=== PATIENT | male | born 1955 | race Asian ===

== ENCOUNTER 2022-12-28 16:16 | Emergency (ER) | payer OTHER ==
[~2022-12-28] VITALS: Ht 185.4 cm; Wt 114.3 kg
[2022-12-28 16:16] VITALS: BP 109/59; TEMP 98
[~2022-12-28 16:16] MED LIST: AMLODIPINE BESYLATE PO; CHOL100034 PO; CLON0.1T16 PO; CLONIDINE HYDR0.2 MG PO; CLOTCRE EX; CODEINE/APAP1 TA1 PO; CYAN10009 IM; DONE5TAB PO; DONEPEZIL HYDRO10 M1 PO; DOXYCYCL HYC100 MG PO; DULO30CA PO; FERROUS SULF325 MG PO; FOLI1TAB26 PO; GABA300C2 PO; HYDR-3182 PO; HYDROCHLOROT12.5 M1 PO; IRON325 MG PO; MECLIZINE 2525 MG PO; MELOXICAM7.5 MG PO; MEMA10TA2 PO; METO-837 PO; METOPROLOL25 M1 PO; MOBIC15 MG PO; MONTELUKAST SOD10 MG PO; NAMENDA10 MG PO
[2022-12-28 17:08] LABS: PLATELET COUNT 216 K/uL (142-355)
[2022-12-28 17:17] LABS: POTASSIUM 4.2 mmol/L (3.6-5.2)
[2022-12-28] MEDS ORDERED: CALCIUM500 MG PO (18:16)
[2022-12-28] MEDS ORDERED: DOCU100C10 PO (18:17)
[2022-12-28] MEDS ORDERED: CYAN10009 IM (18:19)
[2022-12-28] MEDS ORDERED: DULOXETINE HCL20 MG PO (18:21)
[2022-12-28] MEDS ORDERED: DONE5TAB PO (18:22)
[2022-12-28] MEDS ORDERED: FERROCITE PO (18:23)
[2022-12-28] MEDS ORDERED: FOLI1TAB26 PO (18:24)
[2022-12-28] MEDS ORDERED: MOBIC7.5 M1 PO (18:25)
[2022-12-28] MEDS ORDERED: MEMA10TA2 PO (18:26)
[2022-12-28] MEDS ORDERED: AMLODIPINE BESYLATE PO (18:28)
[2022-12-28] MEDS ORDERED: [UNRECOGNIZED DRUG - CODE] PO (18:30)
[2022-12-28] MEDS ORDERED: CLONIDINE HYDR0.2 MG PO (18:34)
[2022-12-28] MEDS ORDERED: METO-837 PO (18:36)
[2022-12-28] MEDS ORDERED: PANTOPRAZOLE 40MG TA PO (18:37)
[2022-12-28] MEDS ORDERED: GABA300C2 PO (18:38)
[2022-12-28] MEDS ORDERED: ONDA4TAB3 PO (18:40)
[2023-01-11] MEDS ORDERED: DOCU100C10 PO (11:01)
[2023-01-11] MEDS ORDERED: CLON0.1T16 PO (11:01)
[2023-01-11] MEDS ORDERED: DULO30CA PO (11:01)
[2023-01-11] MEDS ORDERED: NORVASC 5MG TAB PO (11:01)
[2023-01-11] MEDS ORDERED: FOLI1TAB26 PO (11:02)
[2023-01-11] MEDS ORDERED: MELOXICAM7.5 MG PO (11:02)
[2023-01-11] MEDS ORDERED: GABA300C2 PO (11:02)
[2023-01-11] MEDS ORDERED: ONDA4TAB3 PO (11:03)
[2023-01-11] MEDS ORDERED: PANTOPRAZOLE 40MG TA PO (11:03)
[2023-01-11] MEDS ORDERED: METO-837 PO (11:03)
[2023-01-11] MEDS ORDERED: MEMA10TA2 PO (11:03)
== END 2022-12-28 17:35 | disposition still patient (30) ==
LOC: ED 16:16
PROVIDERS: Family Medicine
DX: R45.6 Violent behavior (principal); Z02.79 Encounter for issue of other medical certificate
CPT/HCPCS: 80053; 85027; 87635; 93005; 99283; U0003